=== PATIENT | female | born 1980 | race Caucasian/White ===

== ENCOUNTER 2017-01-12 13:28 | Emergency (ER) | payer OTHER ==
[~2017-01-12] VITALS: Ht 157.5 cm; Wt 51.5 kg
[~2017-01-12 13:28] MED LIST: DIAZ5TAB4 PO; HYDR25SU23 PR; ONDA4TAB35 PO; PRENAT PO
[2017-01-12 13:30] VITALS: Ht 157.5 cm; Wt 51.5 kg
[2017-01-12 15:24] LABS: URINE BLOOD (Dip) POC 2+ (NEGATIVE)
[2017-01-12] MEDS ORDERED: KETOROLAC 30 MG INJ IV STA (15:53)
[2017-01-12] MEDS ORDERED: SOD CHLORIDE 0.9% 1,000 ML IV STA (15:53)
[2017-01-12 16:26] LABS: ADD SCAN DIFF NO
[2017-01-12 16:28] LABS: BASOPHILS % 0.6 % (0.0-2.0); EOSINOPHILS % 0.1 % (0.0-7.0); HEMOGLOBIN 13.5 g/dl (12.0-16.0); LYMPHOCYTES # 1.8 10^3/ul (0.8-2.9); LYMPHOCYTES % 25.3 % (15.0-51.0); MEAN CORPUSCULAR HEMOGLOBIN 30.5 pg (29.0-33.0); MEAN CORPUSCULAR HGB CONC 33.8 g/dl (32.0-37.0); MEAN CORPUSCULAR VOLUME 90.3 fl (82.0-101.0); MEAN PLATELET VOLUME 12.5 fl (7.4-10.4); MONOCYTE # 0.4 10^3/ul (0.3-0.9); MONOCYTES % 5.9 % (0.0-11.0); NEUTROPHIL # 4.7 10^3/ul (1.6-7.5); PLATELET COUNT 139 10^3/UL (140-415); RED BLOOD COUNT 4.43 10^6/ul (4.20-5.40); RED CELL DISTRIBUTION WIDTH 12.4 % (11.5-14.5)
[2017-01-12 16:37] LABS: URINE BLOOD (Dip) POC 1+ (NEGATIVE)
[2017-01-12 16:40] LABS: POTASSIUM 4.5 mmol/L (3.5-5.1)
[2017-01-12 16:42] LABS: ALBUMIN/GLOBULIN RATIO 2.08; BILIRUBIN,INDIRECT 1.3 mg/dl (0-1.1); BILIRUBIN,TOTAL 1.3 mg/dl (0.2-1.3); CREATININE 0.53 mg/dl (0.44-1.00); TOTAL PROTEIN 7.4 g/dl (6.1-8.1)
[2017-01-12 16:43] LABS: CALCIUM 9.9 mg/dl (8.4-10.2)
--- NOTE | 2017-01-12 18:08 | RADRPT ---
PROCEDURE: CT abdomen and pelvis without IV contrast. CLINICAL INDICATION: Abdominal pain TECHNIQUE: CT scan of the abdomen and pelvis without contrast was performed on the [facility] volumetric [address] scanner. The patient was scanned without intravenous contrast. Coronal and sagittal refo rmatted images were obtained from the axial source images. The CTDI vol is 4.07 mGy and the DLP is 2 06.91 mGy-cm. COMPARISON: 10/22/2012 FINDINGS: CT abdomen: The lung bases are clear. The heart size is not enlarged and is without pericardial thickening or e ffusion. The liver is normal in size and density and is without focal mass or intrahepatic biliary dilatation . The spleen is mildly enlarged measuring 12.5 cm in size. The spleen is homogeneous in density. Th e stomach is grossly unremarkable. The pancreas as visualized is normal. The gallbladder and bilia ry tree are unremarkable and there is no evidence for common bile duct dilatation. The adrenal glan ds are symmetric and normal. The kidneys are symmetrically unremarkable as well. No renal calculus or obstructive uropathy or mass lesion is seen. The aorta is of normal in caliber. There is no retroperitoneal lymphadenopathy. The navya hepatis region is clear. The large bowel is stool-filled. The small and large bowel and mesentery, as visua lized, are otherwise unremarkable. The normal appendix is identified. CT pelvis: The pelvic organs are normal. The pelvic sidewalls and inguinal regions are clear. No pelvic mass, lymphadenopathy, or free fluid is seen. No acute inflammation is seen. The urinary bladder is wit hin normal limits. The surrounding osseous structures are unremarkable. No osteolytic or osteoblastic lesion is detect ed. IMPRESSION: 1. No acute pathology in the abdomen and pelvis. 2. Stool filled large bowel. 3. Mild splenomegaly. RPTAT: HPNM Physician Angelito Date Time Electronically viewed and signed by Physician Angelito on 01/12/2017 18:07 /
[2017-01-12] MEDS ORDERED: TRAM50TA2 PO (18:29)
[2017-01-12] MEDS ORDERED: IBUP400T22 PO (18:29)
[2017-01-12] MEDS ORDERED: DOCU-144 PO (18:29)
--- NOTE | 2017-01-12 18:31 | ERD ---
ER Documentation Chief Complaint Date/Time DATE: 01/12/17 TIME: 18:30 Chief Complaint back pain with dysuria HPI This 36 old female complains of right-sided low back pain radiates to right pelvis for the last 3 days. She denies any inciting events,, weakness or bowel or bladder const. She denies a fevers or vomiting or shortness of chest pain. She may have some possible sensation of urinary frequency but no significant dysuria and no hematuria noted. She denies a vaginal discharge. ROS All systems reviewed and are negative except as per history of present illness. Medications Home Meds Active Scripts Ibuprofen* (Motrin*) 400 Mg Tab, 400 MG PO Q6, #20 TAB Prov:ORA ROSALES MD 01/12/17 Docusate Sodium* (Colace*) 100 Mg Capsule, 100 MG PO BID, #30 CAP Prov:ORA ROSALES MD 01/12/17 Tramadol HCl (Tramadol HCl) 50 Mg Tablet, 50 MG PO Q4 Y for PAIN, #20 TAB Prov:ORA ROSALES MD 01/12/17 Hydrocortisone Acetate (Anusol-Hc) 25 Mg Supp.rect, 1 SUPP IN QHS Y for HEMORROID PAIN/ITCHING, #5 SUPP.RECT Prov:JOSE NGUYEN PA-C 07/03/16 Multivit/Min/Fol Ac/Iron/Pren* ( S*) 1 Tab Tab, 1 TAB PO DAILY, #30 TAB Prov:LISSA DEJESUS PA-C 01/06/16 Ondansetron Hcl* (Zofran* ODT) 4 mg -ODT Tab.disper, 4 MG PO Q4H Y for NAUSEA AND OR VOMITING, #20 TAB Prov:LISSA DEJESUS PA-C 01/06/16 Diazepam* (Diazepam*) 5 Mg Tablet, 5 MG PO Q8 Y for MUSCLE SPASMS, #10 Prov:ALEJANDRINA VELAZQUEZ 01/24/15 Allergies Allergies: Coded Allergies: metoclopramide HCl (Verified Allergy, Intermediate, 09/16/14) morphine (Verified Allergy, Intermediate, RASH, 09/16/14) prochlorperazine edisylate (Verified Allergy, Intermediate, RASH, 09/16/14) prochlorperazine maleate (Verified Allergy, Intermediate, RASH, 09/16/14) Penicillins (Verified Allergy, Mild, RASH, 02/18/14) metoclopramide (Verified Allergy, Mild, 02/18/14) prochlorperazine (Verified Allergy, Mild, 02/18/14) PMhx/Soc History of Surgery: No Anesthesia Reaction: No Hx Neurological Disorder: No Hx Respiratory Disorders: Yes (asthma) Hx Cardiac Disorders: No Hx Psychiatric Problems: Yes (ANXIETY) Hx Miscellaneous Medical Probl: No Hx Alcohol Use: No Hx Substance Use: No Hx Tobacco Use: No Physical Exam Vitals Vital Signs Date Time Temp Pulse Resp B/P Pulse Ox O2 Delivery O2 Flow Rate FiO2 01/12/17 13:30 98.6 91 18 120/69 99 Physical Exam Const: [], Not ill-appearing. Head: Atraumatic Eyes: Normal Conjunctiva ENT: Normal External Ears, Nose and Mouth. Neck: Full range of motion..~ No meningismus. Resp: Clear to auscultation bilaterally Cardio: Regular rate and rhythm, no murmurs Abd: Soft, non tender, non distended. Normal bowel sounds Skin: No petechiae or rashes Back: No midline or flank tenderness. There is some mild tenderness in the right lower back and right mid abdomen. No tenderness at McBurney's point no Harrison sign and no rebound. Ext: No cyanosis, or edema Neur: Awake and alert Psych: Normal Mood and Affect Result Diagram: 01/12/17 1623 01/12/17 1623 Results 24 hrs Laboratory Tests Test 01/12/17 15:26 01/12/17 16:23 01/12/17 16:39 Bedside Urine pH (LAB) 6.5 7.0 Bedside Urine Protein (LAB) Negative Negative Bedside Urine Glucose (UA) Negative Negative Bedside Urine Ketones (LAB) Negative Negative Bedside Urine Blood 2+ 1+ Bedside Urine Nitrite (LAB) Negative Negative Bedside Urine Leukocyte Esterase (L Negative Negative White Blood Count 7.010^3/ul Red Blood Count 4.4310^6/ul Hemoglobin 13.5g/dl Hematocrit 40.0% Mean Corpuscular Volume 90.3fl Mean Corpuscular Hemoglobin 30.5pg Mean Corpuscular Hemoglobin Concent 33.8g/dl Red Cell Distribution Width 12.4% Platelet Count 60462^3/UL Mean Platelet Volume 12.5fl Neutrophils % 68.0% Lymphocytes % 25.3% Monocytes % 5.9% Eosinophils % 0.1% Basophils % 0.6% Nucleated Red Blood Cells % 0.0/100WBC Neutrophils # 4.710^3/ul Lymphocytes # 1.810^3/ul Monocytes # 0.410^3/ul Eosinophils # 0.010^3/ul Basophils # 0.010^3/ul Nucleated Red Blood Cells # 0.010^3/ul Sodium Level 138mmol/L Potassium Level 4.5mmol/L Chloride Level 100mmol/L Carbon Dioxide Level 26mmol/L Anion Gap 17 Blood Urea Nitrogen 14mg/dl Creatinine 0.53mg/dl Glucose Level 90mg/dl Calcium Level 9.9mg/dl Total Bilirubin 1.3mg/dl Direct Bilirubin 0.00mg/dl Indirect Bilirubin 1.3mg/dl Aspartate Amino Transf (AST/SGOT) 18IU/L Alanine Aminotransferase (ALT/SGPT) 34IU/L Alkaline Phosphatase 68IU/L Total Protein 7.4g/dl Albumin 5.0g/dl Globulin 2.40g/dl Albumin/Globulin Ratio 2.08 Current Medications Medications (Trade) Dose Ordered Sig/Whit Route PRN Reason Start Time Stop Time Status Last Admin Dose Admin Sodium Chloride (NS) 1,000 ml @ 1,000 mls/hr Q1H STAT IV 01/12/17 15:53 01/12/17 16:52 DC 01/12/17 16:38 Ketorolac Tromethamine (Toradol) 30 mg ONCE STAT IV 01/12/17 15:53 01/12/17 15:55 DC 01/12/17 16:39 Procedures/MDM HCG is negative. CBC and CMP normal. After review of urine shows 2+ hemoglobin without leukocytes, nitrites or glucose. CT abdomen and pelvis without contrast shows no stones or acute abnormalities. There is stool filled colon. Patient was given 1 L normal saline IV and Toradol 30 mg IV. Patient has low back pain radiating to the right midabdomen of uncertain etiology. May be muscle skeletal back pain as are no other acute findings. Patient be treated with tramadol, ibuprofen and Colace and instructions to follow-up with primary doctor this week or return to the ER for new or worsening symptoms. The patient was stable with no new complaints during the ER course. Clinically, there is no current evidence to suggest meningitis, sepsis, acute abdomen, pneumonia, acute coronary syndrome, pulmonary embolism, or any other emergent condition appearing to require further evaluation or hospitalization. The patient should certainly return for any new or worsening symptoms per the aftercare instructions. They should otherwise follow-up with her primary care doctor for reevaluation this week. Departure Diagnosis: Primary Impression: Back pain Back pain location: low back pain Chronicity: acute Back pain laterality: right Sciatica presence: without sciatica Qualified Code: M54.5 - Acute right-sided low back pain without sciatica Condition: Stable Patient Instructions: Back Pain (Acute Or Chronic) Additional Instructions: Examinations normal today except for slight blood in urine. No evidence of stones or appendicitis. We'll treat for pain and possible constipation and instructions to follow-up with primary care doctor this week or return for fevers, vomiting, new or worsening symptoms. ORA ROSALES MD January 12, 2017 18:31
== END 2017-01-12 19:04 | disposition home or self-care (01) ==
LOC: FTE 13:28
DX: M54.5 Low back pain (principal); J45.909 Unspecified asthma, uncomplicated
CPT/HCPCS: 74176; 80053; 81003; 85025; J1885; J7030; 36415; 96374

== ENCOUNTER 2017-01-21 19:04 | Emergency (ER) | payer OTHER ==
[~2017-01-21] VITALS: Ht 167.6 cm; Wt 50.9 kg
[~2017-01-21 19:04] MED LIST changes: +DOCU-144 PO; +IBUP400T22 PO; +TRAM50TA2 PO
[2017-01-21 19:21] VITALS: Ht 167.6 cm; Wt 50.9 kg
[2017-01-21] MEDS ORDERED: AZIT250T94 PO (19:59)
[2017-01-21] MEDS ORDERED: GUAI120S26 PO (19:59)
[2017-01-21] MEDS ORDERED: IBUP-1542 PO (19:59)
[2017-01-21] MEDS ORDERED: PRED50TA PO (20:00)
[2017-01-21] MEDS ORDERED: CETI10CA PO (20:00)
--- NOTE | 2017-01-21 20:13 | ERD ---
ER Documentation Chief Complaint Date/Time DATE: 01/21/17 TIME: 20:[address], COUGH X 1 WEEK. DENIES N/V FEVER HPI 36-year-old female presents here in emergency department for multiple complaints. Patient is complaining of cough for 1 week, on and off wheezing, dry cough, does not cough up any phlegm or blood. Patient denies any fever or chills. Patient is also complain of sore throat, burning pain 4/10 scale, accompanied with hoarseness of the voice. Patient also is complaining of left ear pain that started today. Throbbing pain, 6/10 scale, and not better or worse with anything. Patient did not take any medications to have symptoms. Patient denies any sick contacts. Patient denies any dizziness, chest pain. ROS All systems reviewed and are negative except as per history of present illness. Medications Home Meds Active Scripts Cetirizine Hcl* (Zyrtec*) 10 Mg Capsule, 10 MG PO DAILY, #30 TAB.CHEW Prov:EPIFANIO FERGUSON NP 01/21/17 Prednisone* (Prednisone*) 50 Mg Tablet, 50 MG PO DAILY, #5 TAB Prov:EPIFANIO FERGUSON NP 01/21/17 Hgazzcroxqo-R-Xmdmienjyz Hb* (Guaifenesin* DM Syrup) 120 Ml Syrup, 10 ML PO Q4H Y for COUGH, #120 ML Prov:EPIFANIO FERGUSON NP 01/21/17 Ibuprofen* (Motrin*) 600 Mg Tab, 600 MG PO Q6H Y for PAIN AND OR ELEVATED TEMP, #30 TAB Prov:EPIFANIO FERGUSON NP 01/21/17 Azithromycin* (Zithromax*) 250 Mg Tablet, 250 MG PO .AlejandroPACK DIRECTED, #6 TAB TAKE 500 MG (2 TABS) THE FIRST DAY THEN 250 MG (1 TAB) DAYS 2-5 Prov:EPIFANIO FERGUSON NP 01/21/17 Ibuprofen* (Motrin*) 400 Mg Tab, 400 MG PO Q6, #20 TAB Prov:ORA ROSALES MD 01/12/17 Docusate Sodium* (Colace*) 100 Mg Capsule, 100 MG PO BID, #30 CAP Prov:ORA ROSALES MD 01/12/17 Tramadol HCl (Tramadol HCl) 50 Mg Tablet, 50 MG PO Q4 Y for PAIN, #20 TAB Prov:ORA ROSALES MD 01/12/17 Hydrocortisone Acetate (Anusol-Hc) 25 Mg Supp.rect, 1 SUPP AR QHS Y for HEMORROID PAIN/ITCHING, #5 SUPP.RECT Prov:JOSE NGUYEN PA-C 07/03/16 Multivit/Min/Fol Ac/Iron/Pren* ( S*) 1 Tab Tab, 1 TAB PO DAILY, #30 TAB Prov:LISSA DEJESUS PA-C 01/06/16 Ondansetron Hcl* (Zofran* ODT) 4 mg -ODT Tab.disper, 4 MG PO Q4H Y for NAUSEA AND OR VOMITING, #20 TAB Prov:LISSA DEJESUS PA-C 01/06/16 Diazepam* (Diazepam*) 5 Mg Tablet, 5 MG PO Q8 Y for MUSCLE SPASMS, #10 Prov:ALEJANDRINA VELAZQUEZ 01/24/15 Allergies Allergies: Coded Allergies: metoclopramide HCl (Verified Allergy, Intermediate, 01/21/17) morphine (Verified Allergy, Intermediate, RASH, 01/21/17) prochlorperazine edisylate (Verified Allergy, Intermediate, RASH, 01/21/17) prochlorperazine maleate (Verified Allergy, Intermediate, RASH, 01/21/17) Penicillins (Verified Allergy, Mild, RASH, 01/21/17) metoclopramide (Verified Allergy, Mild, 01/21/17) prochlorperazine (Verified Allergy, Mild, 01/21/17) PMhx/Soc History of Surgery: No Anesthesia Reaction: No Hx Neurological Disorder: No Hx Respiratory Disorders: Yes (asthma) Hx Cardiac Disorders: No Hx Psychiatric Problems: Yes (ANXIETY) Hx Miscellaneous Medical Probl: No Hx Alcohol Use: No Hx Substance Use: No Hx Tobacco Use: No FmHx Family History: No coronary disease, No diabetes, No other Physical Exam Vitals Vital Signs Date Time Temp Pulse Resp B/P Pulse Ox O2 Delivery O2 Flow Rate FiO2 01/21/17 19:21 98.8 84 18 133/92 99 Physical Exam GENERAL: The patient is well developed and appropriate for usual state of health, in no apparent distress. HEENT: Atraumatic. Ears: Left ear tympanic membrane noted to be erythematous and bulging. Normal right tympanic membrane, no erythema or bulging. No ear canal swelling. No ear discharge. Nose: normal nasal turbinates, no erythema or swelling. Normal nasal discharge. Throat: oropharynx erythematous. No tonsillar swelling or tonsillar exudates. No lymphadenopathy. Noted hoarseness of the voice. CHEST: Clear to auscultation bilaterally. There are no rales, wheezes or rhonchi. HEART: Regular rate and rhythm. No murmurs, clicks, rubs or gallops. No S3 or S4. ABDOMEN: Soft, nontender and nondistended. Good bowel sounds. No rebound or guarding. No gross peritonitis. No gross organomegaly or masses. No Harrison sign or McBurney point tenderness. BACK: No midline or flank tenderness. EXTREMITIES: Equal pulses bilaterally. There is no peripheral clubbing, cyanosis or edema. No focal swelling or erythema. Full range of motion. Grossly neurovascularly intact. NEURO: Alert and oriented. Cranial nerves 2-12 intact. Motor strength in all 4 extremities with 5/5 strength. Sensation grossly intact. Normal speech and gait. SKIN: There is no apparent rash or petechia. The skin is warm and dry. HEMATOLOGIC AND LYMPHATIC: There is no evidence of excessive bruising or lymphedema. No gross cervical, axillary, or inguinal lymphadenopathy. Procedures/MDM Medical Decision Making: Patient symptoms are most likely consistent with acute bronchitis, possibly atypical infection. Patient also has symptoms of laryngitis, can be viral, can be also bacterial. Patient also has left otitis media, no tm perforation, no symptoms of otitis externa or mastoiditis. No foreign body in the ear.. There is low suspicion for Pneumonia at this time since patients lungs sounds are clear, patient O2 saturation is normal and patient doesnt show any respiratory distress. Radiology exam is not indicated at this time. There is low suspicion for other cardiopulmonary emergencies at this time such as CHF, Pulmonary Embolism, Pneumothorax, or any other cardiopulmonary emergencies at this time. There is low suspicion for sepsis. Patient appears well and is hemodynamically stable. Patient does not have any fever. Disposition: Home. Condition: Stable Prescriptions: Azithromycin, Zyrtec, ibuprofen, guaifenesin DM, albuterol and prednisone Instructions: Patient is advised to take medications as prescribed. Patient is advised to rest. Patient advised to increase fluid intake, do humidifier at home and if possible, do salt water gargles. Patient is advised that if symptoms are worse, shortness of breath, uncontrolled fever, stridor, vomiting, worst signs and symptoms to return to emergency department immediately. Otherwise, patient is advised to follow up with primary doctor in 5-7 days. Departure Diagnosis: Primary Impression: Laryngitis Additional Impressions: Acute bronchitis Bronchitis organism: unspecified organism Qualified Code: J20.9 - Acute bronchitis, unspecified organism Left otitis media Otitis media type: serous Chronicity: acute Recurrence: not specified as recurrent Qualified Code: H65.02 - Acute serous otitis media of left ear, recurrence not specified Condition: Stable Patient Instructions: Bronchitis With Wheezing (Adult), Laryngitis, Otitis Media, Abx Tx (Adult) EPIFANIO FERGUSON NP January 21, 2017 20:13
== END 2017-01-21 21:02 | disposition home or self-care (01) ==
LOC: E/R 19:04
DX: J04.0 Acute laryngitis (principal); J20.9 Acute bronchitis, unspecified; H65.02 Acute serous otitis media, left ear; J45.909 Unspecified asthma, uncomplicated
CPT/HCPCS: 99284

== ENCOUNTER 2017-11-21 08:54 | Emergency (ER) | END 2017-11-21 10:31 | disposition home or self-care (01) ==

== ENCOUNTER 2018-04-15 07:55 | Emergency (ER) | END 2018-04-15 08:50 | disposition home or self-care (01) ==

== ENCOUNTER 2018-11-14 03:26 | Emergency (ER) | payer OTHER ==
[~2018-11-14] VITALS: Wt 52.7 kg
[~2018-11-14 03:26] MED LIST changes: +ACYC800T5 PO; +ALBU18HF INHALATION; +AZIT250T PO; +CETI10CA PO; +GUAI120S26 PO; +IBUP-1542 PO; +IBUP-1561 PO; -IBUP400T22 PO; +PRED50TA PO; +PSEU120T11 PO
[2018-11-14 03:32] VITALS: BP 112/69; PULSE 93; RESP 18
--- NOTE | 2018-11-14 04:59 | ERD ---
ER Documentation Chief Complaint Chief Complaint SINUS CONGESTION, BODY ACHES, L EAR PAIN X'S 1 DAY HPI This is a 38-year-old female who presents to emerge department with complaints of left ear pain, sinus congestion for about 2 days. LMP: Stated it was 3 days ago. . Denies headache, head injury, loss of consciousness, dizziness, neck pain, neck stiffness, throat pain, difficulty swallowing, difficulty breathing lying flat, shoulder pain, chest pain, back pain, abdominal pain, nausea, vomiting, constipation, diarrhea, urinary symptoms, or possibility being , loss of bowel and bladder control, trauma, injury, falls, difficulty walking due to pain, numbness or tingling sensation, calf pain, recent travel, recent major surgery in the last 3 weeks, calf pain, recent long travel, recent exposure to any illness, recent antibiotic use in the last 3 months, fever, chills, seizures. Past medical history: Surgical history: Social: Denies smoking, use of alcoholic beverages, use of illegal drugs. ROS All systems reviewed and are negative except as per history of present illness. Medications Home Meds Active Scripts Benzonatate* (Tessalon Perle*) 100 Mg Capsule, 100 MG PO Q8H PRN for COUGH, #15 CAP Prov:PASILABAN,KLAR F 11/14/18 Ibuprofen* (Motrin*) 600 Mg Tab, 600 MG PO Q6H PRN for PAIN AND OR ELEVATED TEMP, #30 TAB Prov:PASILABAN,KLAR F 11/14/18 Sulfamethoxazole/Trimethoprim* (Bactrim Ds* Tablet) 1 Each Tablet, 1 TAB PO BID for 7 Days, #14 TAB Prov:PASILABAN,KLAR F 11/14/18 Ibuprofen* (Motrin*) 600 Mg Tab, 600 MG PO Q6, #30 TAB Prov:GINO SANCHEZ PA-C 04/15/18 Acyclovir* (Zovirax*) 800 Mg Tablet, 800 MG PO 5 TIMES DAILY for 7 Days, TAB Prov:GINO SANCHEZ PA-C 04/15/18 Cetirizine Hcl* (Zyrtec*) 10 Mg Capsule, 10 MG PO DAILY, #10 TAB.CHEW Prov:SUSI WATSON PA-C 11/21/17 Pseudoephedrine Hcl (Sudafe 12-Hour) 120 Mg Tablet.er, 120 MG PO BID PRN for CONGESTION, #6 TAB.SA Prov:SUSI WATSON PA-C 11/21/17 Albuterol Sulfate* (Ventolin HFA*) 18 Gm Hfa.aer.ad, 2 PUFF INHALATION Q4H, #1 INHALER Prov:SUSI WATSON PA-C 11/21/17 Ibuprofen* (Motrin*) 400 Mg Tab, 400 MG PO Q6, #30 TAB Prov:SUSI WATSON PA-C 11/21/17 Cetirizine Hcl* (Zyrtec*) 10 Mg Capsule, 10 MG PO DAILY, #30 TAB.CHEW Prov:EPIFANIO FERGUSON NP 01/21/17 Prednisone* (Prednisone*) 50 Mg Tablet, 50 MG PO DAILY, #5 TAB Prov:EPIFANIO FERGUSON NP 01/21/17 Wwrrvejifkj-M-Yeeaqahboe Hb* (Guaifenesin* DM Syrup) 120 Ml Syrup, 10 ML PO Q4H PRN for COUGH, #120 ML Prov:EPIFANIO FERGUSON NP 01/21/17 Ibuprofen* (Motrin*) 600 Mg Tab, 600 MG PO Q6H PRN for PAIN AND OR ELEVATED TEMP, #30 TAB Prov:EPIFANIO FERGUSON NP 01/21/17 Azithromycin* (Zithromax*) 250 Mg Tablet, 250 MG PO .ZPACK DIRECTED, #6 TAB TAKE 500 MG (2 TABS) THE FIRST DAY THEN 250 MG (1 TAB) DAYS 2-5 Prov:EPIFANIO FERGUSON NP 01/21/17 Ibuprofen* (Motrin*) 400 Mg Tab, 400 MG PO Q6, #20 TAB Prov:ORA ROSALES MD 01/12/17 Docusate Sodium* (Colace*) 100 Mg Capsule, 100 MG PO BID, #30 CAP Prov:ORA ROSALES MD 01/12/17 Tramadol HCl (Tramadol HCl) 50 Mg Tablet, 50 MG PO Q4 PRN for PAIN, #20 TAB Prov:ORA ROSALES MD 01/12/17 Hydrocortisone Acetate (Anusol-Hc) 25 Mg Supp.rect, 1 SUPP SC QHS PRN for HEMORROID PAIN/ITCHING, #5 SUPP.RECT Prov:JOSE NGUYEN PA-C 07/03/16 Multivit/Min/Fol Ac/Iron/Pren* ( S*) 1 Tab Tab, 1 TAB PO DAILY, #30 TAB Prov:LISSA DEJESUS PA-C 01/06/16 Ondansetron Hcl* (Zofran* ODT) 4 mg -ODT Tab.disper, 4 MG PO Q4H PRN for NAUSEA AND OR VOMITING, #20 TAB Prov:LISSA DEJESUS PA-C 01/06/16 Diazepam* (Diazepam*) 5 Mg Tablet, 5 MG PO Q8 PRN for MUSCLE SPASMS, #10 Prov:ALEJANDRINA VELAZQUEZ 01/24/15 Allergies Allergies: Coded Allergies: metoclopramide HCl (Verified Allergy, Intermediate, 01/21/17) morphine (Verified Allergy, Intermediate, RASH, 01/21/17) prochlorperazine edisylate (Verified Allergy, Intermediate, RASH, 01/21/17) prochlorperazine maleate (Verified Allergy, Intermediate, RASH, 01/21/17) Penicillins (Verified Allergy, Mild, RASH, 01/21/17) metoclopramide (Verified Allergy, Mild, 01/21/17) prochlorperazine (Verified Allergy, Mild, 01/21/17) PMhx/Soc Medical and Surgical Hx: pt denies Surgical Hx History of Surgery: Yes (D&C 2014) Anesthesia Reaction: No Hx Neurological Disorder: No Hx Respiratory Disorders: Yes (Asthma) Hx Cardiac Disorders: No Hx Psychiatric Problems: No Hx Miscellaneous Medical Probl: Yes (reflux ) Hx Alcohol Use: No Hx Substance Use: No Hx Tobacco Use: No Smoking Status: Never smoker Physical Exam Vitals Vital Signs Date Temp Pulse Resp B/P (MAP) Pulse Ox O2 O2 Flow FiO2 Time Delivery Rate 11/14/18 98.9 93 18 112/69 98 03:32 (83) Physical Exam Const: No acute distress Head: Atraumatic Eyes: Normal Conjunctiva ENT: Normal External Ears, Nose and Mouth. Bilateral ears: TMs are mildly erythematous. No bleeding. No discharge with no hearing loss. Nose: There is frontal and maxillary sinus tenderness to palpation. Throat: Uvula is in m idline and nondisplaced. Tonsils are +1 bilaterally without redness and without exudates. Tolerating secretions. Patent airway. Speaks full and clear sentences. No tripoding. Neck: Full range of motion. No meningismus. No nuchal rigidity. No signs of meningeal irritation. Resp: Clear to auscultation bilaterally. No accessory muscle use in breathing. Cardio: Regular rate and rhythm, no murmurs Abd: Soft, non tender, non distended. Normal bowel sounds Skin: No petechiae or rashes Back: No midline or flank tenderness Ext: No cyanosis, or edema Neur: Awake and alert. No neurological deficits. Psych: Normal Mood and Affect Procedures/MDM Diagnostic tests: Clinical exam. Treatment: Not applicable. Re-evaluation: Not applicable. Differential diagnosis I have low suspicion for sepsis, meningitis, mastoiditis, peritonsillar abscess, bronchospasm. Final diagnosis: Sinusitis. Patient is insisting antibiotics. Prescription: Bactrim. Motrin. Tessalon Perles. Follow-up with PCP in the next 24-48 hours. Come back here in the emergency department for any new symptoms or any worsening symptoms. All questions and concerns were answered. Patient and family members verbalized understanding and agreed with plan of care. Hemodynamically stable on discharge. Departure Diagnosis: Primary Impression: Sinusitis Condition: Stable Additional Instructions: Follow-up with PCP in the next 24-48 hours. Come back here in the emergency department for any new symptoms or any worsening symptoms. DAVID CHU Nov 14, 2018 04:59
[2018-11-14] MEDS ORDERED: SULF1TAB31 PO (05:01)
[2018-11-14] MEDS ORDERED: BENZ-6 PO (05:02)
[2018-11-14] MEDS ORDERED: IBUP-1542 PO (05:02)
== END 2018-11-14 05:25 | disposition home or self-care (01) ==
LOC: FTE 03:26
DX: J32.9 Chronic sinusitis, unspecified (principal); J45.909 Unspecified asthma, uncomplicated
CPT/HCPCS: 99283

== ENCOUNTER 2019-03-20 10:21 | Emergency (ER) | payer OTHER ==
[~2019-03-20] VITALS: Ht 170.2 cm; Wt 51.3 kg
[~2019-03-20 10:21] MED LIST changes: +BENZ-6 PO; +GUAI120S25 PO; -GUAI120S26 PO; +IBUP800T48 PO; +METH500T PO; +SULF1TAB31 PO
[2019-03-20 10:25] VITALS: BP 121/73; PULSE 85; RESP 18; Ht 170.2 cm; Wt 51.3 kg
[2019-03-20] MEDS ORDERED: KETOROLAC 60 MG INJ IM STA (10:54)
[2019-03-20] MEDS ORDERED: METHOCARBAMOL 750 MG TAB PO ONE (11:00)
--- NOTE | 2019-03-20 11:03 | ERD ---
ER Documentation Chief Complaint Chief Complaint neck pain x 1 week HPI Patient is a 38 years old female with past medical history of asthma and GERD presenting to the clinic for neck stiffness X 1 week. Patient admits to traveling to [place] by car and driving back which is followed by neck pain that worsened over the days. She admits to using Voltaren gel, heat therapy, and massage therapy without resolution. She reports she has difficulty turning her head due to pain and stiffness. Patient denies any trauma or injury. ROS All systems reviewed and are negative except as per history of present illness. Medications Home Meds Active Scripts Methocarbamol* (Robaxin*) 500 Mg Tab, 500 MG PO Q8 for 7 Days, #21 TAB Prov:BRIT LANGLEY PA-C 03/20/19 Ibuprofen* (Motrin*) 800 Mg Tab, 800 MG PO Q6H PRN for PAIN AND OR ELEVATED TEMP, #30 TAB Prov:BRIT LANGLEY PA-C 03/20/19 Benzonatate* (Tessalon Perle*) 100 Mg Capsule, 100 MG PO Q8H PRN for COUGH, #15 CAP Prov:PASILABAN,VIELKAAR F 11/14/18 Ibuprofen* (Motrin*) 600 Mg Tab, 600 MG PO Q6H PRN for PAIN AND OR ELEVATED TEMP, #30 TAB Prov:PASILABAN,KLAR F 11/14/18 Sulfamethoxazole/Trimethoprim* (Bactrim Ds* Tablet) 1 Each Tablet, 1 TAB PO BID for 7 Days, #14 TAB Prov:PASILABAN,VIELKAAR F 11/14/18 Ibuprofen* (Motrin*) 600 Mg Tab, 600 MG PO Q6, #30 TAB Prov:GINO SANCHEZ PA-C 04/15/18 Acyclovir* (Zovirax*) 800 Mg Tablet, 800 MG PO 5 TIMES DAILY for 7 Days, TAB Prov:GINO SANCHEZ PA-C 04/15/18 Cetirizine Hcl* (Zyrtec*) 10 Mg Capsule, 10 MG PO DAILY, #10 TAB.CHEW Prov:SUSI WATSON PA-C 11/21/17 Pseudoephedrine Hcl (Sudafe 12-Hour) 120 Mg Tablet.er, 120 MG PO BID PRN for CONGESTION, #6 TAB.SA Prov:SUSI WATSON PA-C 11/21/17 Albuterol Sulfate* (Ventolin HFA*) 18 Gm Hfa.aer.ad, 2 PUFF INHALATION Q4H, #1 INHALER Prov:SUSI WATSON PA-C 11/21/17 Ibuprofen* (Motrin*) 400 Mg Tab, 400 MG PO Q6, #30 TAB Prov:SUSI WATSON PA-C 11/21/17 Cetirizine Hcl* (Zyrtec*) 10 Mg Capsule, 10 MG PO DAILY, #30 TAB.CHEW Prov:EPIFANIO FERGUSON PHOTOCOPY OPERATOR 01/21/17 Prednisone* (Prednisone*) 50 Mg Tablet, 50 MG PO DAILY, #5 TAB Prov:EPIFANIO FERGUSON PHOTOCOPY OPERATOR 01/21/17 Llnxwnfltnr-A-Khdhcciopb Hb* (Guaifenesin* DM Syrup) 120 Ml Syrup, 10 ML PO Q4H PRN for COUGH, #120 ML Prov:EPIFAINO FERGUSON NP 01/21/17 Ibuprofen* (Motrin*) 600 Mg Tab, 600 MG PO Q6H PRN for PAIN AND OR ELEVATED TEMP, #30 TAB Prov:EPIFANIO FERGUSON PHOTOCOPY OPERATOR 01/21/17 Azithromycin* (Zithromax*) 250 Mg Tablet, 250 MG PO .SUSANNE DIRECTED, #6 TAB TAKE 500 MG (2 TABS) THE FIRST DAY THEN 250 MG (1 TAB) DAYS 2-5 Prov:EPIFANIO FERGUSON NP 01/21/17 Ibuprofen* (Motrin*) 400 Mg Tab, 400 MG PO Q6, #20 TAB Prov:ORA ROSALES MD 01/12/17 Docusate Sodium* (Colace*) 100 Mg Capsule, 100 MG PO BID, #30 CAP Prov:ORA ROSALES MD 01/12/17 Tramadol HCl (Tramadol HCl) 50 Mg Tablet, 50 MG PO Q4 PRN for PAIN, #20 TAB Prov:ORA ROSALES MD 01/12/17 Hydrocortisone Acetate (Anusol-Hc) 25 Mg Supp.rect, 1 SUPP [place] QHS PRN for HEMORROID PAIN/ITCHING, #5 SUPP.RECT Prov:JOSE NGUYEN PA-C 07/03/16 Multivit/Min/Fol Ac/Iron/Pren* ( S*) 1 Tab Tab, 1 TAB PO DAILY, #30 TAB Prov:LISSA DEJESUS PA-C 01/06/16 Ondansetron Hcl* (Zofran* ODT) 4 mg -ODT Tab.disper, 4 MG PO Q4H PRN for NAUSEA AND OR VOMITING, #20 TAB Prov:LISSA DEJESUS PA-C 01/06/16 Diazepam* (Diazepam*) 5 Mg Tablet, 5 MG PO Q8 PRN for MUSCLE SPASMS, #10 Prov:ALEJANDRINA VELAZQUEZ 01/24/15 Allergies Allergies: Coded Allergies: metoclopramide HCl (Verified Allergy, Intermediate, 03/20/19) morphine (Verified Allergy, Intermediate, RASH, 01/21/17) prochlorperazine edisylate (Verified Allergy, Intermediate, RASH, 01/21/17) prochlorperazine maleate (Verified Allergy, Intermediate, RASH, 01/21/17) Penicillins (Verified Allergy, Mild, RASH, 01/21/17) metoclopramide (Verified Allergy, Mild, 01/21/17) prochlorperazine (Verified Allergy, Mild, 01/21/17) PMhx/Soc History of Surgery: Yes (D&C 2014) Anesthesia Reaction: No Hx Neurological Disorder: No Hx Respiratory Disorders: Yes (Asthma) Hx Cardiac Disorders: No Hx Psychiatric Problems: No Hx Miscellaneous Medical Probl: Yes (reflux ) Hx Alcohol Use: No Hx Substance Use: No Hx Tobacco Use: No Smoking Status: Never smoker FmHx Family History: No diabetes, No coronary disease, No other Physical Exam Vitals Physical Exam Const: No acute distress Head: Atraumatic Neck: Limited range of motion due to neck pain. Cervical muscle stiffness and knots noted. No gross trauma, skin intact. Resp: Clear to auscultation bilaterally Cardio: Regular rate and rhythm, no murmurs Psych: Normal Mood and Affect Results 24 hrs Laboratory Tests Test 03/20/19 11:14 POC Beta HCG, Qualitative NEGATIVE Current Medications Medications Dose Sig/Whit Start Time Status Last (Trade) Ordered Route PRN Stop Time Admin Dose Reason Admin Ketorolac 60 mg ONCE STAT 03/20/19 DC 03/20/19 Tromethamine IM 10:54 11:19 (Toradol) 03/20/19 10:57 1,500 mg ONCE ONCE 03/20/19 DC 03/20/19 Methocarbamol PO 11:00 11:18 (Robaxin) 03/20/19 11:01 Procedures/MDM Patient seen and evaluated for neck pain/stiffness most likely due to muscle spasm spasm. Physical exam is grossly unremarkable without any signs of mass noted. No imaging or further work-up required for today's visit. Urine is negative. Toradol 60 mg, Robaxin 1500 mg administered in ED. low suspicion of meningitis, sepsis, ICH due to an unremarkable physical exam and stable vital sign. Patient is stable and ready for discharge. Patient will be discharged with Robaxin and ibuprofen. Advised to continue using heat therapy. Follow-up with PCP. Departure Diagnosis: Primary Impression: Neck pain Condition: Stable Patient Instructions: Neck Pain, No Trauma Referrals: [facility] Additional Instructions: Patient advised to return to the ED immediately for new or worsening symptoms. Patient advised to follow up with primary care provider in the next 24-48 hours. Patient verbalized understanding and agrees with treatment plan and course of action. If patient has no primary care they may follow up with [facility] + [facility] [address] [place] [id number] or [facility] [address] [place] [address] or [facility] [address] [place] [address] BRIT LANGLEY PA-C Mar 20, 2019 11:03
== END 2019-03-20 11:29 | disposition home or self-care (01) ==
LOC: FTE 10:21
DX: M54.2 Cervicalgia (principal); J45.909 Unspecified asthma, uncomplicated
CPT/HCPCS: 81025; 96372; J1885; Z7502; Z7610

== ENCOUNTER 2019-04-29 18:21 | Emergency (ER) | payer OTHER ==
[~2019-04-29] VITALS: Ht 167.6 cm; Wt 50.7 kg
[~2019-04-29 18:21] MED LIST changes: +DEC4 PO
[2019-04-29 18:37] VITALS: BP 108/78; PULSE 79; RESP 20; Ht 167.6 cm; Wt 50.7 kg
[2019-04-29] MEDS ORDERED: DEXAMETHASONE 4 MG TAB PO ONE (19:00)
[2019-04-29] MEDS ORDERED: IBUPROFEN 800 MG TAB PO ONE (19:00)
== END 2019-04-29 19:43 | disposition home or self-care (01) ==
LOC: FTE 18:21
DX: J45.901 Unspecified asthma with (acute) exacerbation (principal); R07.89 Other chest pain
CPT/HCPCS: 71045; Z7502; Z7610